=== PATIENT | male | born 1945 | race Caucasian/White ===

== ENCOUNTER → 2020-04-27 09:13 | Outpatient (BNVA) | payer MEDICARE, BC, SELFPAY | PROVIDERS: Family Provider Family Medicine; PCP Family Medicine; Visit Provider Urology | DX: R10.32 Left lower quadrant pain (principal); C67.9 Malignant neoplasm of bladder, unspecified; F17.210 Nicotine dependence, cigarettes, uncomplicated | CPT/HCPCS: 81001 ==

== ENCOUNTER 2020-05-15 07:53 | Outpatient (CLI) | payer MEDICARE, BC, SELFPAY ==
--- NOTE | 2020-05-15 08:30 | IR_ITS ---
WS: [id number] MYELOGRAM LUMBAR SPINE Fluoroscopic guided lumbar myelogram CLINICAL INFORMATION: Low back pain COMPARISON: 019 TECHNIQUE: The procedure, including risks, benefits, and complications, were discussed with the patie nt who agreed to proceed. A timeout was performed to confirm correct patient, procedure, and site. Using sterile technique, the patient was prepped and draped in the usual sterile fashion. After admin istration of local anesthesia using 1% preservative-free lidocaine and using fluoroscopic guidance, a 22-gauge spinal needle was advanced into the subarachnoid space at the L1-L2 level. Subsequently 13 cc of Omnipaque 240 was administered into the thecal sac. The needle was removed and hemostasis was a chieved. Spot fluoroscopic images were obtained. FLUOROSCOPIC TIME: 0.7 minutes. Spot fluoroscopic images demonstrate spinal stimulator. S-shaped lumbar scoliosis. Advanced spondylit ic changes. 5 nonrib-bearing lumbar vertebral bodies. Disc space narrowing worse at L2-L3, L3-L4, L4- L5. Anterior hypertrophic changes. Bony foraminal narrowing L5-S1. Slight retrolisthesis L2 on L3, L3 on L4, and L4 on L5. Aortic calcification. No instability on flexion-extension. High-grade central c anal stenosis L3-L5 with partial contrast block. Please see CT myelogram report for additional detail. IR/[place] [id number] IMPRESSION: 1. Uncomplicated lumbar myelogram. 2. High-grade central canal stenosis L3-L5 with partial contrast block. See CT for further anatomic detail. 3. S-shaped lumbar scoliosis. 4. Spinal stimulator. 5. No instability on flexion-extension.
[2020-05-15] MEDS: iohexol 240 mg/mL 50 mL Btl INTRATHECA (09:27)
--- NOTE | 2020-05-15 11:00 | CT_ITS ---
WS: [id number] CT LUMBAR SPINE TECHNIQUE: Contrast-enhanced CT of the lumbar spine with coronal and sagittal reformatted images. CLINICAL INFORMATION: Low back pain COMPARISON: CT myelogram 8 ,019 DLP: 1988.[address] scans at [facility] use at least one of these dose optimization techniques: automat ed exposure control; mA and/or kV adjustment per patient size (includes targeted exams where dose is matched to clinical indication); or iterative reconstruction. FINDINGS: S-shaped lumbar scoliosis. Multilevel degenerative disc disease. Extensive postoperative changes with right-sided hemilaminectomies L2-L3, L3-4, L4-L5 and L5-S1. Dorsal column stimulator placement. Disc space narrowing worse at L2-L3 L3-L4 L4-L5 and L5-S1. Endplate degenerative changes. Disc space narr owing appears stable since 2019. T12-L1: Right pericentral protrusion. Mild right and no significant left foraminal narrowing. Moderat e facet arthropathy. Spinal canal is patent. L1-L2: Right pericentral protrusion impinges the traversing right L2 nerve root. Mild central canal s tenosis. Mild to moderate right and mild left foraminal narrowing. Moderate facet arthropathy. L2-L3: Prior postoperative changes. Mild circumferential central canal stenosis with disc osteophyte complex. Moderate bilateral bony foraminal narrowing. Moderate facet arthropathy. L3-L4: Disc osteophyte complex with a central disc osteophyte protrusion. Moderate central canal sten osis. Poor opacification of the thecal sac due to stenosis. Moderate right and mild left foraminal na rrowing. Moderate facet arthropathy. L4-L5: Vacuum disc phenomenon with disc osteophyte complex. Mild to moderate central canal stenosis. Moderate right and mild left foraminal narrowing. L5-S1: Disc osteophyte complex with endplate ridging. Moderate central canal stenosis. Impingement on the right S1 nerve root. Moderate bilateral foraminal narrowing right greater than left. Impingement on the exiting right L5 nerve root. Aortic calcification. Shotty retroperitoneal and periaortic lymph nodes. Visualized pelvic bony structures: Normal. Paravertebral soft tissues: Normal. CT/CT lumbar spine w con [id number] IMPRESSION: 1. Overall no significant changes since July 08, 2019. 2. S-shaped lumbar scoliosis with multilevel degenerative disc disease. 3. Multilevel postoperative changes right hemilaminectomy L2-L3, L3-L4, L4-L5 and L5-S1. 4. Redundancy of the cauda equina nerve rootlets at L1-2 and L2-3 due to high- grade partial contrast block at the L3 level. Central disc osteophyte protrusio n L3-4 results in moderate to severe central canal stenosis despite prior jennifer ectomy defects. Impingement on the thecal sac. 5. Moderate central canal stenosis L4-L5 and L5-S1. Impingement traversing rig ht S1 nerve root. 6. Small right pericentral protrusion L1-2 impinges the right L2 nerve root. 7. Multilevel foraminal narrowing described above.
== END 2020-05-15 07:54 | disposition home or self-care (01) ==
LOC: RADWPI 08:00
PROVIDERS: Family Provider Family Medicine; PCP Family Medicine; Visit Provider Licensed Practical Nurse
DX: M41.86 Other forms of scoliosis, lumbar region (principal); M51.36 Other intervertebral disc degeneration, lumbar region; M51.26 Other intervertebral disc displacement, lumbar region; M48.061 Spinal stenosis, lumbar region without neurogenic claudication
CPT/HCPCS: 62304; 72120; 72132; Q9966

== ENCOUNTER → 2020-09-13 15:38 | Outpatient (BNVA) | payer MEDICARE, BC, SELFPAY | PROVIDERS: Family Provider Family Medicine; PCP Family Medicine; Visit Provider Dermatology | DX: D48.9 Neoplasm of uncertain behavior, unspecified (principal) | CPT/HCPCS: 88304 ==

== ENCOUNTER 2021-03-22 12:57 | Outpatient (CLI) | payer MEDICARE, BC, SELFPAY ==
--- NOTE | 2021-03-22 14:36 | N.ONRAD NP_ITS ---
Radiation Oncology Consultation Patient Name: Wilma Dowling Date of : 1945 Date of Service: 03/22/2021 Attending Physician: Humberto Bernardo M.D. Wilma Dowling was seen in consultation this afternoon at the request of Salas Gupta M.D. for consideration of radiotherapy for the management of a recurrent nonmelanoma skin cancer. 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 A two-stage procedure was completed with a final surgical defect measuring 2.5 cm x 1.7 (final defect depth was to the cartilage -the pathology report was requested from the hospital and personally reviewed). He was evaluated approximately 1 month ago at [facility] on account of wound dehiscence and persistent drainage from the right ear. Examination revealed a 1 cm diameter full-thickness skin loss in the ignacia right ear without the presence of abscess or purulent discharge. A biopsy obtained on March 02, 2021 confirmed well differentiated invasive squamous cell carcinoma. He presents for consideration of salvage radiotherapy. Following a discussion concerning Mr. Dowling's disease history (high risk stratification appertaining to location), salvage radiotherapy would be recommended if re-excision is not an option according to the National Comprehensive Cancer Network Guidelines for nonsurgical candidates. I would endorse a 6-1/2 week course of cutaneous radiotherapy to the right ear if surgery is not offered. The patient's medical treatment plan was discussed with Salas Gupta M.D. Signed by: Dr. Humberto Bernardo 03/22/2021 2:34:34 PM
== END 2021-03-22 12:58 | disposition home or self-care (01) ==
LOC: ONCMED 13:06
PROVIDERS: PCP Family Medicine; Visit Provider Radiology Radiation Oncology
DX: C49.0 Malignant neoplasm of connective and soft tissue of head, face and neck (principal); Z79.899 Other long term (current) drug therapy
CPT/HCPCS: 99205

== ENCOUNTER 2021-04-11 13:22 | Outpatient (CLI) | payer MEDICARE, BC, SELFPAY | END 2021-04-11 13:23 | disposition home or self-care (01) | PROVIDERS: PCP Family Medicine; Visit Provider Specialist | DX: C44.222 Squamous cell carcinoma of skin of right ear and external auricular canal (principal) | CPT/HCPCS: 88304; 88331 ==

== ENCOUNTER 2021-06-08 05:50 | Outpatient (RCR) | payer MEDICARE, BC, SELFPAY ==
--- NOTE | 2021-05-29 | CT_ITS ---
Radiation Therapy Planning CT images; total exam DLP: 547.74 mGy-cm MTDD
--- NOTE | 2021-06-04 11:20 | ONCRAD TMN_ITS ---
Radiation Oncology Weekly Treatment Management Patient: Wilma Dowling MR#: [id number] : 1945> Attending Physician: Dr. 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 ID: [id number],Energy: 6X, Dose/Fx (cGy): 200, #Fx: , Dose Correction (cGy): 0, Total Dose (cGy): 400, Start Date: 05/31/2021, Elapsed Days: 4 Reason for visit: The patient is being seen today as part of their regularly scheduled weekly on treatment visits to assess for acute toxicities from radiotherapy. Review of Systems: has long-term back problems which require narcotic pain medication. He is followed by the pain clinic. He is tolerating the treatment position well. I placed the bolus for his initial treatment and the therapists say they are having no difficulty duplicating that. Mr. Dowling's main concern is the area posterior to the antitragus down into the lobule and posterior to that area. There has been some puffiness of this area since he was seen for simulation. He has expressed concern each time I have seen him. There is some tenderness. He is seeing Dr. Toscano after today's treatment for evaluation of that area. Vital Signs: Performed on 06/04/2021 10:44 AM BMI - 30.767 kg/m2 (high), Height - 73.00 in, Weight - 233.2 lbs, Temperature - 97.9 f, Pulse - 68, Respiration - 20, O2 Sat - 97 %, Pain - 5 and BP - 110/ 68 mm(hg). Physical Exam: The ear is stable in appearance. No gross lesions seen. There continues to be mild edema in the area of his concern. He says there is tenderness but he does not withdraw when the area is touched. Between the earlobe and the skin of the postauricular area, there is mild edema. There is slight fluctuance. There is no drainage or warmth or other evidence of infection. Imaging: Radiation therapy imaging related to accurate target localization (i.e. KV, MV and CBCT) was reviewed. Appropriate changes, if any, were made to ensure treatment accuracy. Plan: Continue treatment according to plan. I told the patient that if there is recurrence in the area of concern that it is in the treatment volume and the dose of radiation should be adequate. I told him if there is concern for infection he may be placed on antibiotics. For now we will wait Dr. Toscano to evaluation. Signed by: Dr. Marco Porter 06/04/2021 11:19:11 AM
== END 2021-06-09 23:59 | disposition home or self-care (01) ==
LOC: ONCMED 05:50
PROVIDERS: PCP Family Medicine; Visit Provider Specialist
DX: Z51.0 Encounter for antineoplastic radiation therapy (principal); C44.221 Squamous cell carcinoma of skin of unspecified ear and external auricular canal; Z79.899 Other long term (current) drug therapy
CPT/HCPCS: 77300; 77301; 77334; 77338; 77386

== ENCOUNTER 2021-07-10 05:46 | Outpatient (RCR) | payer MEDICARE, BC, SELFPAY ==
--- NOTE | 2021-06-11 10:53 | ONCRAD TMN_ITS ---
Radiation Oncology Treatment Management Note Patient Name: Wilma Dowling Date of : 1945 Date of Service: 06/11/2021 Attending Physician: Humberto Bernardo M.D. 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 A wide local excision with a free-skin graft was performed on April 11, 2021 by Salas Gupta M.D. The patient has received 12 Gy of a prescribed 54 Eason with an intensity modulated radiotherapy plan utilizing a step and shoot treatment technique. Upon review of systems, he denied any complaints related to radiotherapy. On physical examination, the patient weighed 248 lbs. His temperature was 98.0 ???F with a blood pressure of 119/73 mmHg. His pulse was 66 bpm and the respiratory rate was 18. There was no erythema within the treatment benjamin. Continue post-operative radiotherapy as prescribed. I will prescribe betamethasone valerate 0.15 cream bid for prevention of dermatitis. Signed by: Dr. Humberto Bernardo 06/11/2021 10:51:39 AM
--- NOTE | 2021-06-18 11:06 | ONCRAD TMN_ITS ---
Radiation Oncology Treatment Management Note Patient Name: Wilma Dowling Date of : 1945 Date of Service: 06/18/2021 Attending Physician: Humberto Bernardo M.D. 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 A wide local excision with a free-skin graft was performed on April 11, 2021 by Salas Gupta M.D. The patient has received 22 Gy of a prescribed 66 Eason with an intensity modulated radiotherapy plan utilizing a step and shoot treatment technique. Upon review of systems, he denied any complaints related to radiotherapy. On physical examination, the patient weighed 233 lbs. His temperature was 97.5 ???F with a blood pressure of 105/66 mmHg. His pulse was 64 bpm and the respiratory rate was 20. There was a grade I erythema within the treatment benjamin. Continue post-operative radiotherapy as planned. Signed by: Dr. Humberto Bernardo 06/18/2021 11:04:32 AM
--- NOTE | 2021-06-25 10:26 | ONCRAD TMN_ITS ---
Radiation Oncology Treatment Management Note Patient Name: Wilma Dowling Date of : 1945 Date of Service: 06/25/2021 Attending Physician: Humberto Bernardo M.D. 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 A wide local excision with a free-skin graft was performed on April 11, 2021 by Salas Gupta M.D. The patient has received 32 Gy of a prescribed 66 Eason with an intensity modulated radiotherapy plan utilizing a step and shoot treatment technique. Upon review of systems, he denied any complaints related to radiotherapy. On physical examination, the patient weighed 231 lbs. His temperature was 98.2 ???F with a blood pressure of 122/67 mmHg. His pulse was 75 bpm and the respiratory rate was 20. There was a grade I erythema within the treatment benjamin. Continue post-operative radiotherapy as prescribed. Signed by: Dr. Humberto Bernardo 06/25/2021 10:25:56 AM
--- NOTE | 2021-07-02 10:16 | ONCRAD TMN_ITS ---
Radiation Oncology Treatment Management Note Patient Name: Wilma Dowling Date of : 1945 Date of Service: 07/02/2021 Attending Physician: Humberto Bernardo M.D. 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 A wide local excision with a free-skin graft was performed on April 11, 2021 by Salas Gupta M.D. The patient has received 42 Gy of a prescribed 66 Eason with an intensity modulated radiotherapy plan utilizing a step and shoot treatment technique. Upon review of systems, he denied any complaints related to radiotherapy. On physical examination, the patient weighed 231 lbs. His temperature was 97.7 ???F with a blood pressure of 103/58 mmHg. His pulse was 64 bpm and the respiratory rate was 18. There was a grade I erythema within the treatment benjamin. Continue post-operative radiotherapy as planned. Signed by: Dr. Humberto Bernardo 07/02/2021 10:15:05 AM
--- NOTE | 2021-07-09 10:30 | ONCRAD TMN_ITS ---
Radiation Oncology Weekly Treatment Management Patient: Nitesh Coleman MR#: [id number] : 1945> Attending Physician: Dr. Marco Porter Date of Service: 07/09/2021 Referring Physician(s) : Rajiv Weinberg M.D. 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 ID: [id number], Energy: 6X, Dose/Fx (cGy): 200, #Fx: / 33, Dose Correction (cGy): 0, Total Dose (cGy): 5,200, Start Date: 05/31/2021, Elapsed Days: 39 Reason for visit: The patient is being seen today as part of his regularly scheduled weekly on treatment visits to assess for acute toxicities from radiotherapy. Review of Systems: No new complaints regarding his ear. He applies betamethasone cream twice daily and is happy with the results of that. He has no ear pain or jaw pain. He notices slight skin irritation and discomfort in the postauricular area. Vital Signs: Performed on 07/09/2021 10:05 AM BMI - 29.896 kg/m2 (high), Height - 73.00 in, Weight - 226.6 lbs, Temperature - 97.8 f, Pulse - 60 /min, Respiration - 18 /min, O2 Sat - 97 %, Pain - 8 and BP - 107/ 65 mm(hg). Physical Exam: The right upper mandible and preauricular area are nontender. There is mild erythema of the skin in this area. The ear, ear canal, and postauricular area have a moderate skin reaction with erythema and dry desquamation. He does not have any moist desquamation. No lymphadenopathy palpated. He pointed out a couple of areas, 1 in the right preauricular area and the other just lateral to the right commissure of the oral cavity, that are of concern to him. Neither area appears suspicious for skin cancer. Imaging: Radiation therapy imaging related to accurate target localization (i.e. KV, MV and CBCT) was reviewed. Appropriate changes, if any, were made to ensure treatment accuracy. Plan: Continue treatment as planned. He continues to be very anxious about the results of treatment. I tried to reassure him that we typically have very good results with cancers of this type. Signed by: Dr. Marco Porter 07/09/2021 10:28:44 AM
== END 2021-07-10 23:59 | disposition home or self-care (01) ==
LOC: ONCMED 05:46
PROVIDERS: PCP Family Medicine; Visit Provider Specialist
DX: Z51.0 Encounter for antineoplastic radiation therapy (principal); C44.221 Squamous cell carcinoma of skin of unspecified ear and external auricular canal; Z79.899 Other long term (current) drug therapy
CPT/HCPCS: 77336; 77386

== ENCOUNTER 2021-07-20 05:54 | Outpatient (RCR) | payer MEDICARE, BC, SELFPAY ==
--- NOTE | 2021-07-17 10:41 | ONCRAD TMN_ITS ---
Radiation Oncology Treatment Management Note Patient Name: Wilma Dowling Date of : 1945 Date of Service: 07/17/2021 Attending Physician: Humberto Bernardo M.D. 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 A wide local excision with a free-skin graft was performed on April 11, 2021 by Salas Gupta M.D. The patient has received 60 Gy of a prescribed 66 Eason with an intensity modulated radiotherapy plan utilizing a step and shoot treatment technique. Upon review of systems, he denied any complaints related to radiotherapy. On physical examination, the patient weighed 227 lbs. His temperature was 97.8 ???F with a blood pressure of 98/58 mmHg. His pulse was 74 bpm and the respiratory rate was 20. There was a grade I erythema within the treatment benjamin. Continue post-operative radiotherapy as prescribed. Signed by: Dr. Humberto Bernardo 07/17/2021 10:41:25 AM
--- NOTE | 2021-07-20 10:02 | N.ONRD TS_ITS ---
Radiation OncologyTreatment Summary Patient Name: Wilma Dowling Date of : 1945 Date of Service: 07/20/2021 Attending Physician: Humberto Bernardo M.D. 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 A wide local excision with a free-skin graft was performed on April 11, 2021 by Salas Gupta M.D. Head and neck radiation therapy was delivered between the dates of May 31, 2021 through July 20, 2021. A prescribed dose of 66 Gy was delivered in 33 fractions encompassing 51 elapsed days. The postoperative bed was treated utilizing an intensity modulated radiotherapy plan with a step and shoot treatment technique. The plan required six gantry angles (200???, 220???, 240???, 280???, 300???, and 330???) replicating a partial arc. The collimator rotation was 0???. The field sizes spanned between 7.1 cm x 9.1 cm to 10.8 cm x 9.1 cm. The SSDs measured a minimum of 96.9 cm to a maximum of 99.8 cm. The ports delivered 214 MU, 182 MU, 176 MU, 263 MU, 293 MU, and 455 MU corresponding to the gantry angles described. Low energy photons were prescribed. All treatments were performed with the SmartPill linear accelerator and an isocentric technique. The dose was calculated by Anisotropic Analytic Algorithm with the plan normalized to deliver 100% of the prescription dose to 95% of the planning target volume. The plan was designed and approved by the [facility] physician. Signed by: Dr. Humberto Bernardo 07/20/2021 10:00:45 AM
== END 2021-08-09 23:59 | disposition home or self-care (01) ==
LOC: ONCMED 05:54
PROVIDERS: PCP Family Medicine; Visit Provider Radiology Radiation Oncology
DX: Z51.0 Encounter for antineoplastic radiation therapy (principal); C44.221 Squamous cell carcinoma of skin of unspecified ear and external auricular canal; Z79.899 Other long term (current) drug therapy
CPT/HCPCS: 77014; 77336; 77386; 77387

== ENCOUNTER → 2022-01-22 15:17 | Outpatient (BNVA) | payer MEDICARE, BC, SELFPAY | PROVIDERS: PCP Family Medicine; Referring Provider Anesthesiology Pain Medicine; Visit Provider Orthopaedic Surgery | DX: M48.062 Spinal stenosis, lumbar region with neurogenic claudication (principal) | CPT/HCPCS: 72110 ==

== ENCOUNTER 2022-02-28 09:18 | Outpatient (CLI) | payer MEDICARE, BC, SELFPAY ==
--- NOTE | 2022-02-28 11:01 | FL_ITS ---
WS: [id number] Limited lumbar spine. Patient presents for lumbar myelogram. This was an unsuccessful attempt at performing a myelogram. Mumtaz liban was unable to remain prone for this examination due to extreme pain. There is also extensive os teophyte disease with fusion throughout the lumbar spine therefore doubtful this would have been succ essful if the patient was able to remain still in a prone position.
== END 2022-02-28 09:19 | disposition home or self-care (01) ==
LOC: RAD 09:21
PROVIDERS: PCP Family Medicine; Visit Provider Orthopaedic Surgery
DX: M48.062 Spinal stenosis, lumbar region with neurogenic claudication (principal); Z53.09 Procedure and treatment not carried out because of other contraindication
CPT/HCPCS: 76000

== ENCOUNTER → 2022-09-26 14:28 | Outpatient (BNVA) | payer MEDICARE, BC, SELFPAY | PROVIDERS: PCP Family Medicine; Referring Provider Family Medicine; Visit Provider Orthopaedic Surgery | DX: M48.062 Spinal stenosis, lumbar region with neurogenic claudication (principal); M47.816 Spondylosis without myelopathy or radiculopathy, lumbar region; G95.89 Other specified diseases of spinal cord; M12.9 Arthropathy, unspecified; M51.36 Other intervertebral disc degeneration, lumbar region; M51.37 Other intervertebral disc degeneration, lumbosacral region | CPT/HCPCS: 72110; 99214 ==

== ENCOUNTER 2022-11-13 18:49 | Inpatient (IN) | payer MEDICARE, BC, SELFPAY ==
[2022-11-05 10:37] VITALS: BMI 29.0
--- NOTE | 2022-11-05 11:15 | ANES.PREANE2 ---
Pre-Anesthetic Assessment Height/Weight: Height 1.85 m Weight 99.79 kg Operation Date: 11/13/22 07:00 Proposed Procedures p Spinal Fusion 38571/[id number]/79002/67343/96028/[id number]/M48.062(Not Applicable) - Bishop Hernández DO s Lumbar Spine Decompression(Not Applicable) - Bishop Hernández DO Familial anesthetic complications: None Social Tobacco and No alcohol Exam alert, oriented x 3, clear to auscultation bilaterally and regular rate & rhythm Airway Mallampati: Class III Dentition: false Pulmonary None reported CV/HEM Atrial Fibrillation and Hypertension None reported Hepatic None reported GI None reported Metabolic Diabetes Mellitus and Hyperlipidemia Anesthetic Plan ASA status: 3 Anesthesia: General Risk of > 500 ml blood loss (7ml/kg in children): No Medications/Allergies Home Medications Medication Instructions Recorded Confirmed Last Taken Type allopurinol 100 mg tablet 100 mg PO BID 03/24/20 11/05/22 Unknown History diltiazem HCl 240 mg capsule,24 240 mg PO DAILY 03/24/20 11/05/22 Unknown History hr,extended release furosemide 20 mg tablet 20 mg PO DAILY 03/24/20 11/05/22 Unknown History gabapentin 600 mg tablet 600 mg PO TID 03/24/20 11/05/22 Unknown History glimepiride 1 mg tablet 1 mg PO DAILY 03/24/20 11/05/22 Unknown History hydrocodone 10 mg-acetaminophen 1 tab PO Q6H PRN Pain 03/24/20 11/05/22 Unknown History 325 mg tablet ([place]) metformin 1,000 mg tablet 1,000 mg PO BID 03/24/20 11/05/22 Unknown History pravastatin 40 mg tablet 40 mg PO DAILY 03/24/20 11/05/22 Unknown History propafenone 150 mg tablet 150 mg PO TID 03/24/20 11/05/22 Unknown History warfarin 4 mg tablet 4 mg PO DIRECTED 03/24/20 11/05/22 Unknown History AREDS 2 01/22/22 09/26/22 Unknown History tamsulosin 0.4 mg capsule See Rx Instructions .Route 02/28/22 11/05/22 Unknown Rx .COMPLEX #180 caps AFO Brace #1 ea 09/26/22 09/26/22 Unknown Rx Diabetic Shoes (3 insoles) #1 ea 09/26/22 09/26/22 Unknown Rx Walker #1 ea 09/26/22 09/26/22 Unknown Rx Intraoperative neuromonitoring #1 ea 10/30/22 Unknown Rx pregabalin 50 mg capsule 50 mg PO DAILY 11/05/22 11/05/22 Unknown History warfarin 3 mg tablet 3 mg PO DIRECTED 11/05/22 11/05/22 Unknown History Allergies Allergy/AdvReac Type Severity Reaction Status Date / Time gabapentin Allergy passes out Verified 11/05/22 10:25 lisinopril Allergy UNKNOWN Verified 11/05/22 10:25 rosuvastatin [From Crestor] Allergy swelling Verified 11/05/22 10:25 [facility] Anesthesia Medical History Arthritis Bladder cancer Diabetes mellitus Gout History of nonmelanoma skin cancer Hypercholesterolemia Hypertension Idiopathic scoliosis of lumbar region Lumbar stenosis with neurogenic claudication Postlaminectomy syndrome, not elsewhere classified Surgical History History of ankle surgery (~1979) both History of back surgery (~1990) 09/07/2015 Dr. Amy Carroll. Thoracic laminectomy, placement of epidural electrode array, placement of a subcutaneous programmable pulse generator. 03/04/2013 Dr. Amy Carroll. Right L1-L2, L2-L3, L3-L4, L4-L5 and L5-S1 laminotomies, with foraminotomies and limited medial facetectomies. History of bunionectomy (~1997) History of cataract extraction History of knee replacement, total (~1997) Right History of lumbar surgery (~03/2013) History of rotator cuff surgery (~09/2014) Family History Father , at age 40 Boat accident with submersion Mother , at age 72 Diabetes Other No pertinent family history Social History Smoking and tobacco status: current every day smoker Alcohol intake: never Household members: none Marital status: Current occupational status: disabled History of recent travel: No Data Anesthesia Cardiac Studies: No Data to Display
[2022-11-13] VITALS (18 sets, daily range): BP systolic 83–134; BP diastolic 58–79; PULSE 56–89; RESP 12–18; TEMP 36.2–36.6; O2SAT 91–100
[2022-11-13 11:11] LABS: Glucose Point of Care 134 mg/dL (70-110)
--- NOTE | 2022-11-13 12:27 | PM.HP ---
Providers/Chief Complaint Primary Care Provider: Hieu Rob Chief Complaint: [id number] History of Present Illness Wilma Dowlign is a 77 year old male low back pain. He states he has had back pain for years. He reports low back pain, radiating into his BLE. He explains he has numbness, tingling and weakness in his legs. He states his left side is worse. Patient states he is experiencing right foot drop. He states he had a neuro stimulator placed 3-4 years ago, by Dr. Barr. He explains the stimulator isn't working. He states he had a previous lumbar surgery by Dr. Smiley years ago. Patient has a recent CT scan from 09/06, ordered by his pcp, and is here today to go over results. Review of Systems General: Reports: 10 or more systems reviewed and unremarkable except in HPI and below Const: Denies: fever(s), chills or body aches Card: Denies: chest pain or orthopnea Resp: Denies: dyspnea, productive cough or wheezing GI: Denies: abdominal pain, nausea or vomiting Musc: Reports: back pain and extremity pain Skin/Breast: Denies: changes in skin color or dry skin Neuro: Reports: numbness in extremities and weakness in extremities Psych: Denies: anxiety Meng/Lymph: Denies: easy bruising or easy bleeding Medications/Allergies Home Medications Medication Instructions Recorded Confirmed Last Taken Type allopurinol 100 mg tablet 100 mg PO BID 03/24/20 11/13/22 11/13/22 History diltiazem HCl 240 mg capsule,24 240 mg PO DAILY 03/24/20 11/13/22 11/13/22 History hr,extended release furosemide 20 mg tablet 20 mg PO DAILY 03/24/20 11/13/22 11/13/22 History gabapentin 600 mg tablet 600 mg PO TID 03/24/20 11/05/22 Unknown History glimepiride 1 mg tablet 1 mg PO DAILY 03/24/20 11/13/22 11/13/22 History hydrocodone 10 mg-acetaminophen 1 tab PO Q6H PRN Pain 03/24/20 11/13/22 11/13/22 History 325 mg tablet ([place]) metformin 1,000 mg tablet 1,000 mg PO BID 03/24/20 11/13/22 11/12/22 History pravastatin 40 mg tablet 40 mg PO DAILY 03/24/20 11/13/22 11/13/22 History propafenone 150 mg tablet 150 mg PO TID 03/24/20 11/13/22 11/13/22 History warfarin 4 mg tablet 4 mg PO DIRECTED 03/24/20 11/05/22 Unknown History AREDS 2 01/22/22 09/26/22 Unknown History tamsulosin 0.4 mg capsule See Rx Instructions .Route 02/28/22 11/13/22 11/13/22 Rx .COMPLEX #180 caps AFO Brace #1 ea 09/26/22 09/26/22 Unknown Rx Diabetic Shoes (3 insoles) #1 ea 09/26/22 09/26/22 Unknown Rx Walker #1 ea 09/26/22 09/26/22 Unknown Rx Intraoperative neuromonitoring #1 ea 10/30/22 Unknown Rx pregabalin 50 mg capsule 50 mg PO DAILY 11/05/22 11/13/22 11/13/22 History warfarin 3 mg tablet 3 mg PO DIRECTED 11/05/22 11/13/22 11/08/22 History Allergies Allergy/AdvReac Type Severity Reaction Status Date / Time gabapentin Allergy passes out Verified 11/05/22 10:25 lisinopril Allergy UNKNOWN Verified 11/05/22 10:25 rosuvastatin [From Crestor] Allergy swelling Verified 11/05/22 10:25 PFSH Acute PFSH: Medical History Arthritis Bladder cancer Diabetes mellitus Gout History of nonmelanoma skin cancer Hypercholesterolemia Hypertension Idiopathic scoliosis of lumbar region Lumbar stenosis with neurogenic claudication Postlaminectomy syndrome, not elsewhere classified Surgical History History of ankle surgery (~1979) both History of back surgery (~1990) 09/07/2015 Dr. Amy Carroll. Thoracic laminectomy, placement of epidural electrode array, placement of a subcutaneous programmable pulse generator. 03/04/2013 Dr. Amy Carroll. Right L1-L2, L2-L3, L3-L4, L4-L5 and L5-S1 laminotomies, with foraminotomies and limited medial facetectomies. History of bunionectomy (~1997) History of cataract extraction History of knee replacement, total (~1997) Right History of lumbar surgery (~03/2013) History of rotator cuff surgery (~09/2014) Family History Father , at age 40 Boat accident with submersion Mother , at age 72 Diabetes Other No pertinent family history Social History Smoking and tobacco status: current every day smoker Alcohol intake: never Household members: none Marital status: Current occupational status: disabled History of recent travel: No Vitals/I&O/Wt Last Vital Signs Temp 97.8 F 11/13/22 10:27 Pulse 56 L 11/13/22 10:27 Resp 18 11/13/22 10:27 BP 114/64 11/13/22 10:27 Pulse Ox 95 11/13/22 10:27 O2 Del Method 11/13/22 10:30 Physical Exam Narrative: CONSTITUTIONAL: The patient is a normal appearing [] in no apparent distress. GENERAL: Patient in no acute distress. CARDIAC: Regular rate and rhythm. CHEST: Normal inspiratory effort, normal respiratory rate. ABDOMEN: Soft and nontender. SKIN: Clear, warm and intact. NEURO?PSYCH: The patient is alert and oriented to person, place and time. Sensorv /SILT Motor StrengthShoulder abduction C5 5/5Wrist extension C6 5/5Elbow extension C7 5/5Hand Income Auditor C8 5/5Finger abduction T15/5 Radial/ Ulnar/ Median n intact LowerSensory (SILT)Motor StrengthHin flexion L2/3Ant/inner thigh 5/5Hip adduction L2/3 5/5Knee extension L4 Lat thigh, 5/5Toe dorsiflexion L5 5/5Ankle dorsiflexion L5/ [id number] flexion S1 5/5 DTRBleeps 2+Triceps 2+Brachioradialis 2+Patellar 2+Achilles 2+ MUSCULOSKELETAL: [] UPPEREXTREMITIES: The patient had full active ROM in fingers, wrist, elbow, and shoulder. The patient demonstrated ability to fully flex/extend/abduct/adduct fingers, make ok sign, cross 2nd/3rd digits, extend 1st digit fully.. Radial pulse 2+, CR<2 seconds. LOWER EXTREMITIES: Pt has full, active ROM of toes, ankle, knee, and hip. Dorsalis pedis/posterior tibialis pulses 2+, CR<2 seconds. SPINE: Skin warm, dry, intact. A&P Assessment and plan (1) Lumbar stenosis with neurogenic claudication: [id number] fusion and decompression; removal of stimulator (2) History of back surgery: Attestations Medical Necessity Statement*: failed conservative therapy Coding Level of Care Code Acute Interline Clerk for [facility] Fwd Diagnoses Lumbar stenosis with neurogenic claudication M48.062 History of back surgery Z98.890
[2022-11-13] MEDS: ceFAZolin 2,000 MG in sodium chloride 0.9% (plus) 50 ML 100 MG IV ×2 (13:00→21:31)
[2022-11-13] MEDS: tranexamic acid 1,000 mg/10mL SDV 1000 MG IV (13:25)
[2022-11-13] MEDS: vancomycin 1,000 MG SDV 1000 MG XX (14:06)
[2022-11-13] MEDS: heparin, porcine 1,000 unit/mL INJ 10 mL 10000 UNIT IRRIGATION (14:06)
--- NOTE | 2022-11-13 17:27 | XR_ITS ---
WS: [id number] Lumbar spine, C-arm fluoroscopy, 11/13/2022 Clinical Data: OR PICS Comparison: None. Findings: Dr. Hernández performed an extensive posterior thoracolumbar sacral fusion with bilateral pedicle screws and connecting rods. XR/XR lumbar spine 1V [id number] Impression: Posterior thoracolumbar sacral fusion.
--- NOTE | 2022-11-13 17:58 | P.OP_ITS ---
Operative Report Date of procedure: November 13, 2022 Pre-op diagnosis: Preop Diagnosis Lumbar stenosis with neurogenic claudication, idiopathic scoliosis Post-op diagnosis: same Procedure done: 1. T10 to Pelvis posterior fusion 2. T10 to S1 posterior Instrumentation 3. Lumbopelvic fixation 4. L4/5 revision laminectomy with partial facetectomies 5. L5/S1 laminectomy with complete facetectomies 6. Use of computer navigation/ stereotactic for spine 7. Bone marrow aspirate from right iliac crest 8. Use of autograft from same incision 9. Use of allograft 10. Removal of neurostimulator 11. Removal of battery for neurostimulator Surgeon: Bishop Hernández Residential Sales Associate: Ham Wilkerson Residential Sales Associate: The surgical attendant, Ham Wilkerson, PAC was needed for his expertise under the microscope. He was important and necessary throughout the procedure to complete in a safe and timely manner. He assisted with patient positioning prepping and draping tissue retraction suctioning of the operative field protection of the dural sac and tissue closure Estimated blood loss (mL): 650 Procedure: 1. T10 to Pelvis posterior fusion 2. T10 to S1 posterior Instrumentation 3. Lumbopelvic fixation 4. L4/5 revision laminectomy with partial facetectomies 5. L5/S1 revision laminectomy with complete facetectomies 6. Use of computer navigation/ stereotactic for spine 7. Bone marrow aspirate from right iliac crest 8. Use of autograft from same incision 9. Use of allograft 10. Removal of neurostimulator 11. Removal of battery for neurostimulator Patient was brought to the operative suite. Patient was then placed under anesthesia. Patient had neuro monitoring connected. Patient was then placed in the prone position on the operating room table. All areas impingement were well-padded. Patient was then prepped and draped in the normal sterile fashion. Attention was first brought to removing the battery for the neurostimulator. Skin incision was made over the left flank where the incision was made previously. Battery was identified removed and wires were cut. Next attention was brought to where the neurostimulator was placed. Skin incision was made at the T9-10-11 area where previous incision was made. The thoracolumbar fascia was identified. Prior to going the thoracolumbar fascia the wires from the battery were identified leading down into the epidural space. The wires were traced down. Subperiosteal dissection was made out from the transverse processes of T10 and then T11. Curved curettes were used to dissect out through the scar tissue of the wires tracing down. And curved curettes and Kerrison rongeurs were used. Further laminectomy was made in order to facilitate finding the normal tissue in order to get the curved curettes underneath. Once all of the scar tissue was removed the neurostimulator was then slowly backed out once was backed out the wires were cut. And the stimulator was taken out. Wires were then pulled through and removed. Next attention was brought to dissecting down from T10 down to S1. Again skin incision made using patient's previous skin incisions. The thoracolumbar fascia was identified. The thoracolumbar fascia was then The spinous processes and the subperiosteal dissection was made out to the sacral ala of S1. And then the transverse processes of L5-T10. This was done bilaterally. Once dissection was complete attention was then made to getting the bone marrow aspirate from the right iliac crest. Bone marrow aspirate was taken from the right iliac crest using the region of cell system. The bone marrow aspirate was inserted then aspirated. And then a blunt was placed inside and it was pushed in further and iliac crest and then backed out in 1 mm increments until he had 20 cc of bone marrow aspirate. Next attention was brought to placing the fiducial for the computer navigation for the spine. 2 pins were placed in the right iliac crest. These pins were then later removed at the end of the case. The fiducial was attached to these 2 pins. The C-arm was then brought in and spun around the patient. The case did require that we had to do 2 splints. When the second screw was done I used a spinous process clamp. The screws that were placed using the iliac crest clamp were from L3 to the pelvis. In the screws for the spinous process clamp were from T10-L2. Next attention was brought to placing the pedicle screws. The screws were placed using a technique of drilling with a high-speed bur then using the gearshift probe linked to the computer navigation was passed down the pedicles. Then the ball probe was then passed down the pedicles to ensure that there were no breaches. Then the screw was placed using the computer navigated guide and screws were placed at S1 bilaterally, L5 bilaterally, L4 bilaterally, L3 bilaterally, L2 bilaterally, L1 bilaterally, T12 bilaterally, T11 bilaterally, and T10 bilaterally. Patient is brought to placing the iliac screws. This was done using the sacral ala iliac technique. The screws were placed bilaterally using the gearshift probe that is linked to the computer navigation this past through the sacrum across the ala across the SI joint and into the iliac crest. Next the ball probe was used to palpate there were no breaches. Then the tap that was linked to computer navigation was used and then 100 mm screws were placed Iliac crest. Next attention was brought to the laminectomy of L5-S1 level. There is severe scar tissue the edge of scar tissue was identified. And a high-speed bur was used to take down part of the lamina. To the point where the S1 nerveS1 foramen around the S1 pedicle. A complete facetectomy was done using the sono PET as well as the high-speed bur curved curettes and Kerrisons. This process was done bilaterally. The S1 nerve was palpated with a [place] around the S1 pedicle felt to be completely free bilaterally and the L5 nerve was felt to be completely free bilaterally out the L4-5 foramen after the facets were completely removed. Extension was brought to doing the L4-5 laminectomy. This was done using a high-speed bur tracing up the L5 nerve and to the lamina. Laminectomy again was done with a high-speed bur curved curettes and Kerrison rongeurs. Partial facetectomy was done at this level. This was done bilaterally. The L5 nerve was traced along the pathway around the L5 pedicle and out the foramen. Next attention was brought to placing rods. Rods were placed from T10 down to the iliac crest. Completing the lumbopelvic fixation. The rods were placed bilaterally. Caps were placed and torqued into position. Next attention was brought to decorticating the bone of the lamina from T10 down to L3. This was done bilaterally and then the transverse processes of L1 down to the sacral ala. Autograft and allograft ostial amp were placed in these gutters. This was done in order to facilitate fusion from T10 to the pelvis. Prior to this wounds were irrigated. And deep drain was placed. Vancomycin powder was placed. And wound was closed in a layered fashion using 0 Vicryl 2-0 Vicryl and Monocryl suture. The location of the battery site was closed as well with 0 Vicryl 2-0 Vicryl and Monocryl suture. Sterile dressings were applied patient was transferred to the PACU in stable condition.
[2022-11-13] MEDS: ketorolac 30 mg/mL INJ IVP (18:52)
[2022-11-13] MEDS: lactated ringers 1,000 ML 90 ML IV (18:54)
--- NOTE | 2022-11-13 19:39 | PC.NURSE ---
Addendum entered by Jemal Gonzalez RN 11/13/22 19:40: REcived patient form OR staff at 192. HR: 77 afib, BP: 83/58, Spo2: 93% on 10L oxymask. Temp: 97.2. Patient is occasionally moaning in pain and flailing arms. OR staff and ICU nursing staff log rolled patient for assessment of surgical site. Dressing is clean, intact, no signs of bleeding or drainage. Original Note: REcived patient form OR staff at 192. HR: 77 afib, BP: 83/58, Spo2: 93% on 10L oxymask. Temp: 97.2. Patient is occasionally moaning in pain and flailing arms.
--- NOTE | 2022-11-13 19:41 | PC.NURSE ---
Patient has been in ICU for about 40 minutes, shift change occured. At time of shift change,patient's mental status is still altered, but improved. He is aware he is in the hospital and occasionally expressing needs such as needing to urinate or pain, but he is still lethargic.
[2022-11-13] MEDS: docusate sodium 100 mg Capsule PO (19:57)
[2022-11-13] MEDS: tamsulosin 0.4 mg Capsule 1 MG PO (19:57)
[2022-11-13] MEDS: allopurinol 100 mg Tablet PO (19:58)
[2022-11-13] MEDS: oxyCODONE 10 mg ER (12 HR) Tablet PO (19:58)
[2022-11-13 20:23] LABS: Glucose Point of Care 144 mg/dL (70-110)
[2022-11-13 20:32] LABS: Basophils % 0.3 %; Eosinophils % 0.1 %; Hematocrit 36.8 % (42.0-52.0); Hemoglobin 12.3 g/dL (11.7-16.6); Lymphocytes # 0.8 10^3/uL (0.8-4.8); Lymphocytes % 6.7 %; Mean Corpuscular HGB Conc 33.4 g/dL (30.0-36.0); Mean Corpuscular Hemoglobin 34.6 pg (28.0-34.0); Mean Corpuscular Volume 103.7 fl (80-94); Monocytes # 0.7 10^3/uL (0.2-0.9); Monocytes % 5.9 %; Neutrophils # 10.68 10^3/uL (1.8-7.7); Neutrophils % 86.4 %; Nucleated Red Blood Cells % 0 %; Platelet Count 218 10^3/cmm (130-400); Red Blood Count 3.55 10^6/uL (4.1-5.3); Red Cell Distribution Width 14.8 % (12.1-15.1); White Blood Count 12.4 10^3/uL (4.0-10.0)
[2022-11-13 20:49] LABS: Alanine Aminotransferase 20 U/L (0-41); Albumin Level 3.6 g/dL (3.5-5.2); Alkaline Phosphatase 82 U/L (40-130); Anion Gap 16.3 (5-19); Aspartate Amino Transferase 25 U/L (0-40); Blood Urea Nitrogen 19 mg/dL (8-23); Calcium 8.1 mg/dL (8.5-10.5); Carbon Dioxide 20 mmol/L (22-29); Chloride 109 mmol/L (98-107); Creatinine Clr Calc Pharmacy 97.6178; Globulin 2.5 g/dL (1.3-4.6); Glucose 133 mg/dL (65-115); Osmolality Calculated 296 mOsm/kg (285-295); Potassium 4.3 mmol/L (3.5-5.1); Sodium 141 mmol/L (136-145); Total Bilirubin 0.2 mg/dL (0.15-1.2); Total Protein 6.1 g/dL (6.6-8.7)
--- NOTE | 2022-11-13 21:18 | XRR_ITS ---
PROCEDURE INFORMATION: Exam: XR Chest Exam date and time: 11/13/2022 9:25 PM Age: 77 years old Clinical indication: Shortness of breath TECHNIQUE: Imaging protocol: Radiologic exam of the chest. Views: 1 view. COMPARISON: CR XR chest 2V* [id number] 06/16/2018 12:59 PM FINDINGS: Lungs: Patchy bilateral mid to lower lung field atelectasis versus infiltrate. Pleural spaces: Unremarkable. No pleural effusion. No pneumothorax. Heart/Mediastinum: Unremarkable. No cardiomegaly. Bones/joints: Unremarkable. XR/XR chest 1V portable [id number] IMPRESSION: Patchy bilateral mid to lower lung field atelectasis versus infiltrate.
--- NOTE | 2022-11-13 21:20 | P.CONIM_ITS ---
Providers/Reason For Consult Consulting Physician/Specialty*: Cesia Blas MD/Internal Medicine Reason for Consult*: Medical Management Attending Physician: Bishop Hernández DO Primary Care Provider: Hieu Rob History of Present Illness History of Present Illness Wilma Dowling is a 77 year old male past medical history of diabetes mellitus, gout, hypercholesterolemia, hypertension, lumbar stenosis, bladder cancer presented to the hospital today for an elective procedure of T10 to pelvis posterior fusion, L4-S1 revision laminectomy. Hospitalist was consulted for medical management. Patient seen in room ICU 9 laying in bed appearing comfortable at this time. He is requesting to eat sherbet. He states he just finished eating ice cream. Denies any active shortness of breath. Denies being a smoker. States he does not wear oxygen at home. States his blood sugar is well controlled Respiratory to his knowledge. Patient is on glimepiride at home. At this time denies chest pain, shortness of breath, abdominal pain. He also states he had a right foot drop and numbness tingling down his right leg prior to surgery which has resolved and he feels better. He states he cannot really find a comfortable position but he understands he had surgery today. Estimated blood loss [address] had about 200 cc output which is bloody. Medications/Allergies Home Medications Medication Instructions Recorded Confirmed Last Taken Type allopurinol 100 mg tablet 100 mg PO BID 03/24/20 11/13/22 11/13/22 History diltiazem HCl 240 mg capsule,24 240 mg PO DAILY 03/24/20 11/13/22 11/13/22 H istory hr,extended release furosemide 20 mg tablet 20 mg PO DAILY 03/24/20 11/13/22 11/13/22 History gabapentin 600 mg tablet 600 mg PO TID 03/24/20 11/05/22 Unknown History glimepiride 1 mg tablet 1 mg PO DAILY 03/24/20 11/13/22 11/13/22 History hydrocodone 10 mg-acetaminophen 1 tab PO Q6H PRN Pain 03/24/20 11/13/22 11/13/22 History 325 mg tablet ([place]) metformin 1,000 mg tablet 1,000 mg PO BID 03/24/20 11/13/22 11/12/22 History pravastatin 40 mg tablet 40 mg PO DAILY 03/24/20 11/13/22 11/13/22 History propafenone 150 mg tablet 150 mg PO TID 03/24/20 11/13/22 11/13/22 History warfarin 4 mg tablet 4 mg PO DIRECTED 03/24/20 11/05/22 Unknown History AREDS 2 01/22/22 09/26/22 Unknown History tamsulosin 0.4 mg capsule See Rx Instructions .Route 02/28/22 11/13/22 11/13/22 Rx .COMPLEX #180 caps AFO Brace #1 ea 09/26/22 09/26/22 Unknown Rx Diabetic Shoes (3 insoles) #1 ea 09/26/22 09/26/22 Unknown Rx Walker #1 ea 09/26/22 09/26/22 Unknown Rx Intraoperative neuromonitoring #1 ea 10/30/22 Unknown Rx pregabalin 50 mg capsule 50 mg PO DAILY 11/05/22 11/13/22 11/13/22 History warfarin 3 mg tablet 3 mg PO DIRECTED 11/05/22 11/13/22 11/08/22 History Allergies Allergy/AdvReac Type Severity Reaction Status Date / Time gabapentin Allergy passes out Verified 11/05/22 10:25 lisinopril Allergy UNKNOWN Verified 11/05/22 10:25 rosuvastatin [From Crestor] Allergy swelling Verified 11/05/22 10:25 Current Medications Generic Name Dose Route Start Last Admin Trade Name Freq PRN Reason Stop Dose Admin Allopurinol 100 mg 11/13/22 20:00 11/13/22 19:58 Allopurinol 100 Mg Tablet PO 100 mg BID ANTWAN Administration Docusate Sodium 100 mg 11/13/22 20:00 11/13/22 19:57 Docusate Sodium 100 Mg Capsule PO 100 mg BID ANTWAN Administration Lactated Ringer's 1,000 mls @ 90 mls/hr 11/13/22 17:45 11/13/22 18:54 Lactated Ringers IV 90 mls/hr .[id number] ANTWAN Administration Ketorolac Tromethamine 30 mg 11/13/22 17:38 11/13/22 18:52 Ketorolac 30 Mg/Ml Inj IVP 30 mg Q6H PRN Administration BREAKTHROUGH PAIN Oxycodone HCl 10 mg 11/13/22 20:00 11/13/22 19:58 Oxycodone 10 Mg Er (12 Hr) Tablet PO 10 mg BID ANTWAN Administration Tamsulosin HCl 1 mg 11/13/22 20:00 11/13/22 19:57 Tamsulosin 0.4 Mg Capsule PO 1 mg BID ANTWAN Administration PFSH Acute PFSH: Medical History (Updated 11/13/22 @ 23:08 by Cesia Blas MD) Arthritis Bladder cancer Diabetes mellitus Gout History of nonmelanoma skin cancer Hypercholesterolemia Hypertension Idiopathic scoliosis of lumbar region Lumbar stenosis with neurogenic claudication Postlaminectomy syndrome, not elsewhere classified Surgical History History of ankle surgery (~1979) both History of back surgery (~1990) 09/07/2015 Dr. Amy Carroll. Thoracic laminectomy, placement of epidural electrode array, placement of a subcutaneous programmable pulse generator. 03/04/2013 Dr. Amy Carroll. Right L1-L2, L2-L3, L3-L4, L4-L5 and L5-S1 laminotomies, with foraminotomies and limited medial facetectomies. History of bunionectomy (~1997) History of cataract extraction History of knee replacement, total (~1997) Right History of lumbar surgery (~03/2013) History of rotator cuff surgery (~09/2014) Family History Father , at age 40 Boat accident with submersion Mother , at age 72 Diabetes Other No pertinent family history Social History Smoking and tobacco status: current every day smoker Alcohol intake: never Household members: none Marital status: Current occupational status: disabled History of recent travel: No Vitals/I&O/Wt Last Vital Signs Temp 97.5 F L 11/13/22 20:00 Pulse 60 11/13/22 21:00 Resp 12 11/13/22 21:00 BP 129/68 11/13/22 21:00 Pulse Ox 99 11/13/22 21:00 O2 Del Method 11/13/22 20:00 O2 Flow Rate 5 11/13/22 20:00 11/13/22 11/13/22 11/13/22 06:59 14:59 22:59 Intake Total 50 / 50 Balance 50 / 50 Physical Exam Narrative: General: Alert oriented x3, patient seen laying in bed with 3 L na fay cannula. HEENT: Normocephalic, atraumatic, EOMI, breathing completely. Cardio: Regular rate rhythm, normal S1-S2, Respiratory: Clear to auscultation bilaterally with absent breath sounds at bases. He is unable to take very deep breaths due to positioning. GI: Abdomen soft, nontender, nondistended, bowel sounds +, has back binder in place. Back drain in place draining bloody material, Behavior: Appropriate and cooperative Extremities: 1+ bilateral lower extremity edema, nonpitting, able to move both lower extremities. Unable to fully plantarflex right foot. Urinary Catheter Management: Kay: Cath Placed During This Visit: yes Reason for Continuing Indwelling Catheter: Accurate Measurement of Urinary Output in Critically Ill Patients Urinary Catheter Date of Insertion: 11/13/22 Urinary Catheter Time of Insertion: 13:17 Data 11/13/22 20:07 11/13/22 20:07 A&P Assessment and plan (1) Bladder cancer: (2) Lumbar stenosis with neurogenic claudication: (3) Hypertension: (4) Gout: Plan #Postop day 0 #L4-S1 revision laminectomy, T10 to pelvis posterior fusion #Diabetes mellitus #Peripheral neuropathy #Hypertension #History of atrial fibrillation #Chronic anticoagulation use #History of gout ? Hold metformin, glimepiride ? Insulin sliding scale low-dose intensity. Goal blood sugar 1 40-1 80 during hospital stay ? Continue propafenone, diltiazem 240 daily, recurrent 100 twice daily ? Continue gabapentin 600 3 times daily ? Continue tamsulosin ? Continue to hold warfarin. Restart as per surgical team ? Continue patient's home dose Lasix 20 daily ? Chest x-ray reviewed infiltrate versus atelectasis present at bases. Incentive spirometer ordered. Patient denies any cough. Watch for fever. ? Patient on cefazolin as per surgical team. ? Wean off oxygen as able. I do expect his oxygen requirement to go down with eventual mobilization, incentive spirometry. -Estimated blood loss 600 cc, wound drain draining 200 cc blood. CBC repeated t his evening. Hemoglobin 12 and stable. Recheck again in 12 hours. -Rest of management as per primary surgical team Full code DVT prophylaxis: As per primary surgical team Consult Attestations Medical Necessity Statement: Defer to primary team Coding Level of Care Code Acute Mixing Tumbler Operator for [facility] Fwd Diagnoses Bladder cancer C67.9 Lumbar stenosis with neurogenic claudication M48.062 Hypertension I10 Gout M10.9
[2022-11-13] MEDS: propafenone 150 mg Tablet PO (21:31)
[2022-11-13] MEDS: morphine 4 mg/mL SDV 1 mL 2 MG IVP (22:15)
[2022-11-14] VITALS (27 sets, daily range): BP systolic 104–135; BP diastolic 56–88; PULSE 63–113; RESP 11–23; TEMP 36.6–37.6; O2SAT 88–100
[2022-11-14] MEDS: morphine 4 mg/mL SDV 1 mL 2 MG IVP ×3 (00:18→19:30)
[2022-11-14 03:13] LABS: Basophils % 0.3 %; Eosinophils # 0.1 10^3/uL (0.0-0.8); Eosinophils % 0.6 %; Hemoglobin 11.3 g/dL (11.7-16.6); Lymphocytes # 1.3 10^3/uL (0.8-4.8); Lymphocytes % 12.1 %; Mean Corpuscular HGB Conc 33.2 g/dL (30.0-36.0); Mean Corpuscular Hemoglobin 34.6 pg (28.0-34.0); Mean Platelet Volume 10.4 fL (7.4-10.4); Monocytes # 0.9 10^3/uL (0.2-0.9); Monocytes % 7.7 %; Neutrophils % 78.8 %; Nucleated Red Blood Cells % 0 %; Platelet Count 208 10^3/cmm (130-400); Red Blood Count 3.27 10^6/uL (4.1-5.3); Red Cell Distribution Width 14.8 % (12.1-15.1)
[2022-11-14] MEDS: ketorolac 30 mg/mL INJ IVP (03:42)
[2022-11-14 03:56] LABS: Blood Urea Nitrogen 20 mg/dL (8-23); Calcium 7.9 mg/dL (8.5-10.5); Carbon Dioxide 21 mmol/L (22-29); Chloride 110 mmol/L (98-107); Creatinine Clr Calc Pharmacy 97.6178; Glucose 83 mg/dL (65-115); Magnesium 1.9 mg/dL (1.7-2.3); Osmolality Calculated 296 mOsm/kg (285-295); Sodium 142 mmol/L (136-145)
[2022-11-14 04:01] LABS: Anion Gap 15.2 (5-19); Potassium 4.2 mmol/L (3.5-5.1)
[2022-11-14] MEDS: ceFAZolin 2,000 MG in sodium chloride 0.9% (plus) 50 ML 100 MG IV ×2 (05:50→12:31)
--- NOTE | 2022-11-14 07:53 | PM.PN ---
Subjective Subjective: POD 1 Patient resting comfortably. Reports less pain in his feet. Still weak in both EHLs right greater than left. Denies any chest pain, shortness of breath, headaches. Vitals/I&O/Wt Last Vital Signs Temp 98.3 F 11/14/22 04:00 Pulse 78 11/14/22 06:00 Resp 13 11/14/22 06:00 BP 106/74 11/14/22 06:00 Pulse Ox 96 11/14/22 06:00 O2 Del Method 11/14/22 01:00 O2 Flow Rate 3 11/14/22 01:00 11/13/22 11/14/22 11/14/22 22:59 06:59 14:59 Intake Total 170 / 220 480 / 700 Output Total 250 / 250 425 / 675 Balance -80 / -30 55 / 25 Weight last 48 hrs Weight 231 lb 7.766 oz Physical Exam Narrative: Patient presents alert and oriented x3 with a good general appearance normal mood and affect. Normal coordination normal stability. Mild tenderness around the incisional site with the incision appears clean and dry with Hemovac intact. No signs of erythema or drainage. No signs of infection. Patient denies any fevers or chills. 4/5 motor strength both lower extremities with weakness in the right EHL consistent with a right foot drop with negative straight leg raise bilaterally. Calves are supple no medial thigh tenderness. Pulses are 2+ at the dorsalis pedis and posterior tibial region. Good capillary refill throughout normal sensation light touch both lower extremities. Urinary Catheter Management: Kay: Cath Placed During This Visit: yes Reason for Continuing Indwelling Catheter: Accurate Measurement of Urinary Output in Critically Ill Patients Urinary Catheter Date of Insertion: 11/13/22 Urinary Catheter Time of Insertion: 13:17 Data 11/14/22 02:43 11/14/22 02:43 A&P Assessment and plan (1) S/P spinal fusion: Physical therapy to mobilize. We will discontinue Kay catheter after that session. Okay from our standpoint to transfer to [facility] if remaining medically stable. Encourage incentive spirometry for pulmonary toilet. foreign exchange services manager to consult for placement. Hold Hemovac drain until postop day 2. (2) Right foot drop: Attestations Medical Necessity Statement*: foreign exchange services manager to consult for placement Coding Level of Care Code Acute Outside Barrel Lathe Operator for Chg Fwd Diagnoses S/P spinal fusion Z98.1 Right foot drop M21.371
--- NOTE | 2022-11-14 09:04 | ANE.PACU2 ---
Inpatient post-anesthesia follow up: Airway intact: Yes Vital signs: Temperature 98.3 F Pulse Rate 78 Respiratory Rate 13 Blood Pressure 106/74 Pulse Oximetry 96 Oxygen Delivery Me thod Nasal Cannula Oxygen Flow Rate 3 Fraction of Inspir ed Oxygen Hydration adequate: Yes Nausea and vomiting: No Pain level: 3 Mental status: Baseline
[2022-11-14] MEDS: ipratropium-albuterol 3 mL Neb INHALATION ×2 (09:35→14:13)
[2022-11-14] MEDS: allopurinol 100 mg Tablet PO ×2 (09:56→17:14)
[2022-11-14] MEDS: propafenone 150 mg Tablet PO ×3 (09:56→22:13)
[2022-11-14] MEDS: tamsulosin 0.4 mg Capsule 1 MG PO ×2 (09:56→17:14)
[2022-11-14] MEDS: FUROsemide 20 mg Tablet PO (09:56)
[2022-11-14] MEDS: calcium gluconate 0.9% NaCL 1 GM/50 ML PREMIX IV (09:56)
[2022-11-14] MEDS: pregabalin 50 mg Capsule PO (09:56)
[2022-11-14] MEDS: lactated ringers 1,000 ML 90 ML IV (09:56)
[2022-11-14] MEDS: atorvastatin 40 mg Tablet 20 MG PO (09:57)
[2022-11-14] MEDS: docusate sodium 100 mg Capsule PO ×2 (09:57→17:14)
[2022-11-14] MEDS: dilTIAZem ER (24HR) 240 mg Capsule PO (09:57)
--- NOTE | 2022-11-14 10:24 | PM.PN ---
Subjective Subjective: Patient is doing well Eating breakfast Still no bowel movement Currently doing well on room air Plan to transfer to [facility] No active complaint of questions Vitals/I&O/Wt Last Vital Signs Temp 98.3 F 11/14/22 04:00 Pulse 75 11/14/22 09:35 Resp 17 11/14/22 09:35 BP 106/74 11/14/22 06:00 Pulse Ox 94 11/14/22 09:35 O2 Del Method 11/14/22 09:35 O2 Flow Rate 1 11/14/22 09:35 11/13/22 11/14/22 11/14/22 22:59 06:59 14:59 Intake Total 170 / 220 1480 / 1700 50 / 50 Output Total 250 / 250 425 / 675 Balance -80 / -30 1055 / 1025 50 / 50 Weight last 48 hrs Weight 105 kg Physical Exam Narrative: Needing bypass Has spine brace on Lower extremity no significant swelling Kay catheter in place Doing well on room air No active distress noted Awake and alert Nonfocal neuro exam Pleasant and cooperative Drain have 200 cc blood content Urinary Catheter Management: Kay: Cath Placed During This Visit: yes Reason for Continuing Indwelling Catheter: Accurate Measurement of Urinary Output in Critically Ill Patients Urinary Catheter Date of Insertion: 11/13/22 Urinary Catheter Time of Insertion: 13:17 Data 11/14/22 02:43 11/14/22 02:43 A&P Assessment and plan (1) S/P spinal fusion: (2) Right foot drop: (3) Hypertension: (4) Gout: (5) Diabetes mellitus: (6) Lower urinary tract symptoms (LUTS): (7) History of nonmelanoma skin cancer: (8) History of back surgery: (9) Bladder cancer: Plan Postop day 1 L4-S1 revision laminectomy T10 to pelvis posterior fusion History of diabetes and peripheral neuropathy History of foot drop Euglycemic Kay catheter to be removed after PT session today Drain will be removed by orthopedic likely tomorrow No significant drop in hemoglobin Afebrile Incentive spirometer DuoNeb every 4 as needed Wean oxygen to room air Attestations Medical Necessity Statement*: As per orthopedics Critical Care Time: 15 Coding Level of Care Code Acute Supervisor Cd Area for g Fwd Diagnoses S/P spinal fusion Z98.1 Right foot drop M21.371 Hypertension I10 Gout M10.9 Diabetes mellitus E11.9 Lower urinary tract symptoms (LUTS) R39.9 History of nonmelanoma skin cancer Z85.828 History of back surgery Z98.890 Bladder cancer C67.9
[2022-11-14] MEDS: oxyCODONE 10 mg ER (12 HR) Tablet PO ×2 (10:44→17:49)
[2022-11-14 11:31] LABS: Glucose Point of Care 167 mg/dL (70-110)
[2022-11-14] MEDS: insulin lispro 100 unit/1 mL SUBCUT ×3 (12:32→22:15)
[2022-11-14] MEDS: oxyCODONE 5 mg IR Tab/Cap 10 MG PO ×2 (12:34→21:30)
[2022-11-14 17:06] LABS: Glucose Point of Care 147 mg/dL (70-110)
[2022-11-15] VITALS (11 sets, daily range): BP systolic 123–160; BP diastolic 71–87; PULSE 75–108; RESP 16–23; TEMP 36.8–37; O2SAT 92–97
[2022-11-15] MEDS: morphine 4 mg/mL SDV 1 mL 2 MG IVP (00:04)
--- NOTE | 2022-11-15 00:05 | PC.NURSE ---
2335 upon assessment of patient, small amount of blood noted around patient's Hemovac site; dressing partially removed to assess drain site, leakage noted around site and blood no longer noted in drain tube 2340 Dr. Stephens contacted about patient's possible removal of Hemovac drain; instructed to reinforce dressing and continue to monitor
[2022-11-15] MEDS: ketorolac 30 mg/mL INJ IVP ×2 (01:50→08:09)
[2022-11-15] MEDS: ipratropium-albuterol 3 mL Neb INHALATION ×2 (02:19→08:46)
--- NOTE | 2022-11-15 04:08 | PC.NURSE ---
0330 patient unable to urinate after johnson removed; bladder scan performed, showing 58 mL of urine 0335 Dr. Blas notified of patient's inability to urinate and low UOP on bladder scan, instructed to perform an in and out catheter procedure 0400 in and out catheter performed; 150 mL of UOP noted
[2022-11-15] MEDS: lactated ringers 1,000 ML 90 ML IV (04:12)
--- NOTE | 2022-11-15 07:04 | PM.DCS ---
Discharge Providers Date of Admission: 11/13/22 18:49 Date of Discharge: November 15, 2022 Attending Provider at Admission: Bishop Hernández DO Attending Provider at Discharge: Bishop Hernández DO Primary Care Provider: Hieu Rob Diagnoses at Discharge Discharge Diagnosis (1) S/P spinal fusion: Status: Acute (2) Right foot drop: Status: Acute (3) Hypertension: Status: Acute (4) Gout: Status: Acute (5) Diabetes mellitus: Status: Acute (6) Lower urinary tract symptoms (LUTS): Status: Acute Permanent problem details: Primarily irritative with good response OXYBUTYNIN (7) History of nonmelanoma skin cancer: Status: Acute (8) History of back surgery: Status: Acute Permanent problem details: 09/07/2015 Dr. Amy Carroll. Thoracic laminectomy, placement of epidural electrode array, placement of a subcutaneous programmable pulse generator. 03/04/2013 Dr. Amy Carroll. Right L1-L2, L2-L3, L3-L4, L4-L5 and L5-S1 laminotomies, with foraminotomies and limited medial facetectomies. (9) Bladder cancer: Status: Acute Reason for Visit Reason for Visit: [id number]/ Hospital Course Hospital Course Patient did well postoperatively had full improvement of his right dorsiflexion was improved. Pain is controlled be discharged today Physical Exam Narrative: Dressings clean dry and intact. Patient's improvement of his dorsiflexion was. Similar to yesterday sensation intact. Urinary Catheter Management: Kay: Cath Placed During This Visit: yes Reason for Continuing Indwelling Catheter: Accurate Measurement of Urinary Output in Critically Ill Patients Urinary Catheter Date of Insertion: 11/13/22 Urinary Catheter Time of Insertion: 13:17 Discharge Data Studies Completed and Pending Completed Studies During Hospitalization Category Date Time Status XR chest 1V portable [id number] Urgent Exams 11/13/22 21:18 Completed XR lumbar spine 1V [id number] Routine Exams 11/13/22 17:27 Completed Radiology Impressions Lumbar Spine X-Ray 11/13/22 17:27 Impression: Posterior thoracolumbar sacral fusion. Chest X-Ray 11/13/22 21:18 IMPRESSION: Patchy bilateral mid to lower lung field atelectasis versus infiltrate. Laboratory Results WBC 11.0 10^3/uL (4.0-10.0) H 11/14/22 02:43 RBC 3.27 10^6/uL (4.1-5.3) L 11/14/22 02:43 Hgb 11.3 g/dL (11.7-16.6) L 11/14/22 02:43 Hct 34.0 % (42.0-52.0) L 11/14/22 02:43 MCV 104.0 fl (80-94) H 11/14/22 02:43 MCH 34.6 pg (28.0-34.0) H 11/14/22 02:43 MCHC 33.2 g/dL (30.0-36.0) 11/14/22 02:43 RDW 14.8 % (12.1-15.1) 11/14/22 02:43 Plt Count 208 10^3/cmm (130-400) 11/14/22 02:43 MPV 10.4 fL (7.4-10.4) 11/14/22 02:43 Neut % (Auto) 78.8 % 11/14/22 02:43 Lymph % (Auto) 12.1 % 11/14/22 02:43 [place] % (Auto) 7.7 % 11/14/22 02:43 Eos % (Auto) 0.6 % 11/14/22 02:43 Baso % (Auto) 0.3 % 11/14/22 02:43 Neut # (Auto) 8.70 10^3/uL (1.8-7.7) H 11/14/22 02:43 Lymph # (Auto) 1.3 10^3/uL (0.8-4.8) 11/14/22 02:43 [place] # (Auto) 0.9 10^3/uL (0.2-0.9) 11/14/22 02:43 Eos # (Auto) 0.1 10^3/uL (0.0-0.8) 11/14/22 02:43 Baso # (Auto) 0.0 10^3/uL (0.0-0.1) 11/14/22 02:43 Nucleated RBC % (auto) 0 % 11/14/22 02:43 Nucleated RBCs # 0.0 /100WBC 11/14/22 02:43 Sodium 142 mmol/L (136-145) 11/14/22 02:43 Potassium 4.2 mmol/L (3.5-5.1) 11/14/22 02:43 Chloride 110 mmol/L (98-107) H 11/14/22 02:43 Carbon Dioxide 21 mmol/L (22-29) L 11/14/22 02:43 Anion Gap 15.2 (5-19) 11/14/22 02:43 BUN 20 mg/dL (8-23) 11/14/22 02:43 Creatinine 0.7 mg/dL (0.7-1.2) 11/14/22 02:43 GFR Calculation Not Reportable 11/14/22 02:43 Glucose 83 mg/dL (65-115) 11/14/22 02:43 POC Glucose 147 mg/dL (70-110) H 11/14/22 17:03 Calculated Osmolality 296 mOsm/kg (285-295) H 11/14/22 02:43 Calcium 7.9 mg/dL (8.5-10.5) L 11/14/22 02:43 Magnesium 1.9 mg/dL (1.7-2.3) 11/14/22 02:43 Total Bilirubin 0.2 mg/dL (0.15-1.2) 11/13/22 20:07 AST 25 U/L (0-40) 11/13/22 20:07 ALT 20 U/L (0-41) 11/13/22 20:07 Alkaline Phosphatase 82 U/L (40-130) 11/13/22 20:07 Total Protein 6.1 g/dL (6.6-8.7) L 11/13/22 20:07 Albumin 3.6 g/dL (3.5-5.2) 11/13/22 20:07 Globulin 2.5 g/dL (1.3-4.6) 11/13/22 20:07 Blood Type A Positive 11/13/22 13:41 Rho(D) Type Positive 11/13/22 13:41 Antibody Screen Negative 11/13/22 13:41 Vitals Last Vital Signs Temp 98.6 F 11/15/22 04:00 Pulse 79 11/15/22 05:32 Resp 16 11/15/22 04:00 BP 158/71 11/15/22 04:00 Pulse Ox 94 11/15/22 04:00 O2 Del Method 11/15/22 04:00 O2 Flow Rate 1 11/15/22 04:00 Discharge Plan Discharge Patient Disposition: Home Condition: Stable Prescriptions: New oxycodone 10 mg tablet 10 mg PO Q4H PRN (Reason: pain) 7 Days Qty: 40 0RF Continued allopurinol 100 mg tablet 100 mg PO BID diltiazem HCl 240 mg capsule,extended release 24 hr 240 mg PO DAILY furosemide 20 mg tablet 20 mg PO DAILY glimepiride 1 mg tablet 1 mg PO DAILY metformin 1,000 mg tablet 1,000 mg PO BID pravastatin 40 mg tablet 40 mg PO QPM propafenone 150 mg tablet 150 mg PO TID Rx Instructions: space evenly during waking hours warfarin 4 mg tablet 4 mg PO EVERY OTHER DAY Rx Instructions: ON [id number]-BIIOUELM AND FRIDAY (DME) AREDS 2 0 .Route .MEDSUPPLY (DME) Walker See Rx Instructions .Route .MEDSUPPLY Qty: 1 0RF Rx Instructions: As directed (DME) Diabetic Shoes (3 insoles) See Rx Instructions .Route .MEDSUPPLY Qty: 1 0RF Rx Instructions: As directed (DME) AFO Brace See Rx Instructions .Route .MEDSUPPLY Qty: 1 0RF Rx Instructions: As directed (DME) Intraoperative neuromonitoring See Rx Instructions .Route .MEDSUPPLY Qty: 1 0RF Rx Instructions: As directed warfarin 3 mg Tablet 3 mg PO EVERY OTHER DAY Rx Instructions: ON FRIDAY, FRIDAY AND FRIDAY pregabalin 50 mg capsule 50 mg PO DAILY tamsulosin 0.4 mg capsule 0.4 mg PO BID Discontinued hydrocodone-acetaminophen 10-325 mg tablet 1 tab PO Q6H Discharge Orders: Discharge Order (Routine); Ordered 11/15/22 Ordered By: Bishop Hernández Discharge Diet: Advance as tolerated Discharge Activity: Limit activity as instructed Patient Instructions: Opioid Safety Activity Restrictions/Additional Instructions: Thank you for choosing [facility] for your care! The following is a list of instructions, from your provider, to follow upon your discharge to ensure you have the optimal recovery from your recent injury or surgery. Follow-up care is a [place] part of your treatment and safety. Be sure to make and go to all appointments and call your doctor if you are having problems. If you do not already have a follow-up appointment made, call Dr. Hernández's] office in the next 1-3 days to make follow up appointment for 1 weeks at [phone]. It is also a good idea to know your test results and keep a list of the medicines you take. Medications will be prescribed for you at your provider's discretion. These medications are to be used as instructed; if they are taken more often that prescribed they will not be refilled early and in most cases will not be refilled at all. > When a refill is needed, you should contact merlin henriquez 2-3 business days before your prescription runs out. Medications will NOT be refilled by management information systems director providers after hours! > Many pain medications contain Tylenol (Acetaminophen). Do not consume more than 4,000 mg of Tylenol per day in total with any combination of medications. > Pain medications can cause constipation. Please use an over the counter stool softener as directed, while taking pain medications. Consult your local pharmacist with questions or recommendations on stool softeners. If constipation persists, contact our office or your primary care provider. > While under our care, you are not to receive pain medications or other controlled substances from any other provider unless our office is notified and approves. Any attempts to do so will result in refusal to prescribe any further pain medications and possible dismissal from our practice. ? Walking is essential for the healing process after surgery. We would like you to slowly advance your walking. This should be done on relatively flat clear ground (inside or out) or can be done on a treadmill. Remember this goal does not have to happen all at once, slowly increase your distance and duration. This can be broken into more more than one walk per day as tolerated. Patients who walk as directed after surgery rarely require Physical Therapy. In the unlikely event this issue arises your provider will direct hospital staff to make the appropriate arrangements. ? No lifting over 5 pounds {a gallon of milk) or bending/twisting until further notice. Each of these activities places an unnecessary amount of stress onto the body and can impede the delicate healing process. > Instead of bending at the waist, keep your back straight and bend at the knees. > Instead of twisting your torso, keep your back straight and turn your entire body with your feet. ? You may sleep in any position which makes you comfortable. Many patients find comfort sleeping in a reclining chair. It is not abnormal to have difficulty sleeping for the first several weeks following your surgery. We recommend trying Benadry! or Tylenol PM as directed to help with your sleeping difficulties. Both medications are over the counter and available without prescription. ? NO SMOKING!!! Smoking dramatically increases the probability of developing postoperative wound infections. ? Common complaints after lumbar and/or thoracic spine surgery include, but are not limited to: numbness and/or tingling in the legs, pain around the incision and surrounding tissues, muscle spasms, or stiffness of the middle to low back. Contact our office if these symptoms persist or if an acute change occurs. ? No driving for the first 3-5days, and not while taking narcotics until seen at your follow-up appointment and cleared. There are no restrictions for riding on short trips, however if you take a longer trip, arrangements should be made to make regular stops to get out of the vehicle and stretch . ? Swelling is an unfortunate event that will take place with any surgery and is the primary source of your postoperative discomfort. While walking and regular approved activities helps control inflammation, there are additional steps you can take to minimize swelling. > Place ice over the surgical site and surrounding tissue for twenty minutes, followed by applying a low/medium heat (heating pad) for an additional twenty minutes every 1-2 hours as needed for painrelief. > You may use of over the counter anti-inflammatory medications (Ibuprofen, Motrin, Aleve, Advil, etc) as directed on the package label. These types of medicines will significantly reduce the amount of discomfort you experience after surgery from swelling. It should be noted that if you have and allergy to any of these medications, or a history of ulcers or kidney disease you should consult you primary care provider prior to starting these medications. Discharge Attestations Time Spent in Discharge Care*: less than 30 min Quality Metrics Clinical Quality Measures [ No reported AMI, CVA or VTE this stay] Coding Level of Care Code Acute Chg FW DC note Diagnoses S/P spinal fusion Z98.1 Right foot drop M21.371 Hypertension I10 Gout M10.9 Diabetes mellitus E11.9 Lower urinary tract symptoms (LUTS) R39.9 History of nonmelanoma skin cancer Z85.828 History of back surgery Z98.890 Bladder cancer C67.9
[2022-11-15 07:33] LABS: Glucose Point of Care 128 mg/dL (70-110)
[2022-11-15] MEDS: atorvastatin 40 mg Tablet 20 MG PO (08:08)
[2022-11-15] MEDS: propafenone 150 mg Tablet PO (08:08)
[2022-11-15] MEDS: oxyCODONE 10 mg ER (12 HR) Tablet PO (08:08)
[2022-11-15] MEDS: FUROsemide 20 mg Tablet PO (08:08)
[2022-11-15] MEDS: docusate sodium 100 mg Capsule PO (08:08)
[2022-11-15] MEDS: allopurinol 100 mg Tablet PO (08:08)
[2022-11-15] MEDS: dilTIAZem ER (24HR) 240 mg Capsule PO (08:08)
[2022-11-15] MEDS: tamsulosin 0.4 mg Capsule PO (08:08)
[2022-11-15] MEDS: pregabalin 50 mg Capsule PO (08:08)
[2022-11-15 08:18] LABS: Glucose Point of Care 212 mg/dL (70-110)
--- NOTE | 2022-11-15 12:47 | PC.NURSE ---
Patient received DC orders, all IVs removed. All discharge instructions given to patient, and prescriptions sent to preferred pharmacy. All activity restrictions given in discharge paperwork and patient verbalized understanding. Patient exited via W/C to main exit with staff.
== END 2022-11-15 11:02 | disposition home health service (06) | DRG 458 ==
LOC: ICU 18:49
PROVIDERS: Internal Medicine; Admitting Provider Orthopaedic Surgery; PCP Family Medicine; Visit Provider Orthopaedic Surgery
PROC: 0RG707J Fusion of 2 to 7 Thoracic Vertebral Joints with Autologous Tissue Substitute, Posterior Approach, Anterior Column, Open Approach (ICD-10-PCS; principal; 2022-11-13 11:40)
PROC: 0RG707J Fusion of 2 to 7 Thoracic Vertebral Joints with Autologous Tissue Substitute, Posterior Approach, Anterior Column, Open Approach (ICD-10-PCS; CPT 63005; 2022-11-13 11:40)
PROC: 0RG707J Fusion of 2 to 7 Thoracic Vertebral Joints with Autologous Tissue Substitute, Posterior Approach, Anterior Column, Open Approach (ICD-10-PCS; 2022-11-13 11:40)
DX: M48.062 Spinal stenosis, lumbar region with neurogenic claudication (principal); M21.371 Foot drop, right foot; I10 Essential (primary) hypertension; M10.9 Gout, unspecified; E11.42 Type 2 diabetes mellitus with diabetic polyneuropathy; N40.1 Benign prostatic hyperplasia with lower urinary tract symptoms; Z85.828 Personal history of other malignant neoplasm of skin; Z98.1 Arthrodesis status; C67.9 Malignant neoplasm of bladder, unspecified; Z79.84 Long term (current) use of oral hypoglycemic drugs; Z79.01 Long term (current) use of anticoagulants; M41.20 Other idiopathic scoliosis, site unspecified; M96.1 Postlaminectomy syndrome, not elsewhere classified; Z96.651 Presence of right artificial knee joint; F17.200 Nicotine dependence, unspecified, uncomplicated; E78.00 Pure hypercholesterolemia, unspecified; I48.91 Unspecified atrial fibrillation
CPT/HCPCS: 36416; 51702; 71045; 72020; 76000; 80048; 80053; 82962; 83735; 85025; 86850; 86900; 94640; 96372; 97116; 97161; 97530; C1713; J0330; J0610; J0690; J1100; J1170; J1644; J1815; J1885; J2250; J2270; J2370; J2405; J2704; J3010; J3370; J3490; J7120; P9045

== ENCOUNTER → 2022-11-28 12:53 | Outpatient (BNVA) | payer MEDICARE, BC, SELFPAY | PROVIDERS: PCP Family Medicine; Visit Provider Orthopaedic Surgery | DX: Z47.89 Encounter for other orthopedic aftercare (principal); Z98.1 Arthrodesis status | CPT/HCPCS: 99024 ==

== ENCOUNTER → 2022-12-26 13:13 | Outpatient (BNVA) | payer MEDICARE, BC, SELFPAY | PROVIDERS: PCP Family Medicine; Visit Provider Orthopaedic Surgery | DX: Z98.1 Arthrodesis status (principal); Z47.89 Encounter for other orthopedic aftercare | CPT/HCPCS: 72100; 99024 ==

== ENCOUNTER → 2023-01-30 12:50 | Outpatient (BNVA) | payer MEDICARE, BC, SELFPAY | PROVIDERS: PCP Family Medicine; Visit Provider Urology | DX: C67.9 Malignant neoplasm of bladder, unspecified (principal) | CPT/HCPCS: 81003 ==

== ENCOUNTER → 2023-03-27 12:20 | Outpatient (BNVA) | payer MEDICARE, BC, SELFPAY | PROVIDERS: PCP Family Medicine; Visit Provider Thoracic Surgery (Cardiothoracic Vascular Surgery) | DX: M21.371 Foot drop, right foot (principal) | CPT/HCPCS: 99203 ==

== ENCOUNTER → 2023-04-15 10:54 | Outpatient (BNVA) | payer MEDICARE, BC, SELFPAY | PROVIDERS: PCP Family Medicine; Visit Provider Physician Assistant | DX: M48.062 Spinal stenosis, lumbar region with neurogenic claudication (principal); M21.371 Foot drop, right foot; Z98.1 Arthrodesis status | CPT/HCPCS: 72070; 72100; 99213 ==

== ENCOUNTER → 2023-07-28 14:31 | Outpatient (BNVA) | payer MEDICARE, BC, SELFPAY | PROVIDERS: PCP Family Medicine; Visit Provider Internal Medicine | DX: R07.9 Chest pain, unspecified (principal); I48.91 Unspecified atrial fibrillation; I45.10 Unspecified right bundle-branch block; E11.9 Type 2 diabetes mellitus without complications; I10 Essential (primary) hypertension; R94.31 Abnormal electrocardiogram [ECG] [EKG] | CPT/HCPCS: 93005; 99204 ==

== ENCOUNTER 2023-08-08 14:38 | Outpatient (CLI) | payer MEDICARE, BC, SELFPAY ==
--- NOTE | 2023-08-08 15:00 | USCV_ITS ---
Wilma Dowling Age: 78 Gender: M : 1945 Exam Date: 08/08/2023 15:10 Ordering Phys: Danilo Cutler M.D ([email or web address]) Technologist: [place] [facility] [place]: BP: 130 / 85 HR: 70 Rhythm: Sinus Technical Quality: Adequate MEASUREMENTS (Male / Female) Normal Values 2D ECHO LV Chamber Size 4.9 cm RV Chamber Size 4.5 cm LVOT Diameter 2.0 cm LV Ejection Fraction MOD 2C 59.7 % LV Ejection Fraction 2C AL 62.4 % LA Diameter 6.3 cm LA Width 4.8 cm LA Height 7.1 cm RA Width 4.5 cm RA Height 7.0 cm Aorta at Sinotubular Diameter 2.6 cm M-MODE Aortic Annulus Diameter 4.1 cm LA Ao Ratio MM 1.6 MV E Point Septal Separation 1.7 cm DOPPLER AV Peak Velocity 160.0 cm/s LVOT Peak Velocity 88.0 cm/s AV Area Cont Eq vti 2.2 cm squared AV Area Cont Eq pk 1.8 cm squared MV Area PHT 4.3 cm squared Mitral E to A Ratio 3.5 MV E' Velocity 67.5 cm/s Mitral E to MV E' Ratio 9.2 Mitral E to LV E' Lateral Ratio 8.8 Mitral E to LV E' Septal Ratio 9.7 TR Peak Velocity 198.7 cm/s TR Peak Gradient 15.8 mmHg TV Peak E Velocity 78.0 cm/s Right Atrial Pressure 3.0 mmHg Pulmonary Artery Systolic Pressu 18.8 mmHg PV Peak Velocity 100.0 cm/s FINDINGS Left Ventricle Left ventricle is normal in size. LV systolic function is normal with EF 55 to 60%. No regional wall motion abnormalities are seen. Right Ventricle Normal in size and function Right Atrium Dilated Left Atrium Dilated Mitral Valve Structurally normal mitral valve. Mild mitral regurgitation. Aortic Valve Structurally normal aortic valve. No significant stenosis. Tricuspid Valve Trace tricuspid regurgitation. Insufficient TR jet to calculate RVSP Pulmonic Valve Trace pulmonic regurgitation. Pericardium Normal Aorta Normal in size IVC Appears to be normal CONCLUSIONS LV systolic function is normal with EF 55 to 60%. Biatrial dilation Mild mitral regurgitation Trace tricuspid regurgitation Trace pulmonic regurgitation Compared to prior echocardiogram from 2018, no significant changes are seen Danilo Cutler MD (Electronically Signed) Final Date: 25 August 2023 12:06 S
== END 2023-08-08 14:39 | disposition home or self-care (01) ==
LOC: RAD 14:39
PROVIDERS: PCP Family Medicine; Visit Provider Internal Medicine
DX: R07.9 Chest pain, unspecified (principal); R06.02 Shortness of breath; I34.0 Nonrheumatic mitral (valve) insufficiency; I51.7 Cardiomegaly
CPT/HCPCS: 93306

== ENCOUNTER → 2023-10-21 09:39 | Outpatient (BNVA) | payer MEDICARE, BC, SELFPAY | PROVIDERS: PCP Family Medicine; Visit Provider Physician Assistant | DX: Z98.1 Arthrodesis status; M47.816 Spondylosis without myelopathy or radiculopathy, lumbar region | CPT/HCPCS: 72100; 99213 ==

== ENCOUNTER → 2024-04-27 14:54 | Outpatient (BNVA) | payer MEDICARE, BC, SELFPAY | PROVIDERS: PCP Family Medicine; Visit Provider Internal Medicine Cardiovascular Disease | DX: I48.91 Unspecified atrial fibrillation (principal); I10 Essential (primary) hypertension; Z72.0 Tobacco use; Z79.01 Long term (current) use of anticoagulants | CPT/HCPCS: 99214 ==

== ENCOUNTER 2025-11-02 11:56 | Outpatient (CLI) | payer MEDICARE, BC, SELFPAY ==
--- NOTE | 2025-11-02 12:02 | CTR_ITS ---
PROCEDURE INFORMATION: Exam: CTA Abdominal Aorta and Bilateral Lower Extremities (Run-off) With Contrast Exam date and time: 11/02/2025 12:24 PM Age: 80 years old Clinical indication: Other: Pad, right foot drop since back surgery years ago; Prior surgery; Surgery date: 6+ months; Surgery type: Back, bilateral knees, bilateral ankles; Pad with right foot drop since back surgery years ago TECHNIQUE: Imaging protocol: Computed tomographic angiography of the of the abdominal aorta, pelvis and bilateral lower extremities with contrast. 3D rendering (Not supervised by radiologist): MIP and/or 3D reconstructed images were created by the technologist. Radiation optimization: All CT scans at this facility use at least one of these dose optimization techniques: automated exposure control; mA and/or kV adjustment per patient size (includes targeted exams where dose is matched to clinical indication); or iterative reconstruction. Contrast material: OMNIPAQUE 350; Contrast volume: 125 ml; Contrast route: INTRAVENOUS (IV); COMPARISON: CR XR knees AP WB w LT lmt ORTH 03/29/2019 1:48 PM RADIATION DOSE METRICS: Total DLP (mGy-cm): 1867.11 FINDINGS: Limitations: Streak artifact from spinal fixation hardware and knee replacements. Aorta: Moderate to severe calcified and soft plaque in the abdominal aorta, which is moderately tortuous. Maximum diameter of 25 mm in the infrarenal abdominal aorta. Aneurysm is not identified. 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 Renal arteries: No occlusion or significant stenosis. Right iliac arteries: No occlusion or significant stenosis. Right femoral/popliteal arteries: Proximal right SFA demonstrates a focal 60-70% diameter stenosis. 50% diameter stenosis in the mid right SFA. 70-80% diameter stenosis in the distal right SFA. Right infrapopliteal arteries: The popliteal artery is obscured by streak artifact from knee replacement. Proximal right anterior tibial artery briefly occludes within 1 cm of its origin. Remainder of anterior tibial is severely diseased, but patent to the ankle. Right dorsalis pedis enhancement is not noted. Severely diseased right posterior tibial artery occludes in the proximal calf, but reconstitutes via collaterals to the ankle. Peroneal artery is patent. Left iliac arteries: No occlusion or significant stenosis. Left femoral/popliteal arteries: Mild narrowing of the distal left common femoral artery. Less than 50% diameter narrowing of the proximal left SFA. 70-80% diameter narrowing of the mid left SFA. Left popliteal artery is obscured by knee replacements. Left infrapopliteal arteries: Left anterior tibial artery is patent to the dorsalis pedis and primary flow to the left foot. Severe origin stenoses of the peroneal and posterior tibial at the bifurcation from the tibioperoneal trunk. Peroneal artery then occludes, but is reconstituted at the ankle via the anterior tibial artery. Right posterior tibial artery occludes in the proximal calf, to be reconstituted at the ankle to a small-vessel. Lungs: Mild lingula and left lower lobe atelectasis. Heart: Multichamber cardiac enlargement. Coronary arteries: Moderate coronary artery calcification. Liver: Multiple hepatic hypodensities favoring cysts. Few small peripheral hyperdense foci are nonspecific and could reflect arteriovenous shunting, hemangiomas or other processes. Gallbladder and biliary ducts: The gallbladder is normal. There is no evidence of biliary ductal dilation. Pancreas: The pancreas is normal. No mass. Spleen: The spleen is normal. Adrenal glands: Mild adrenal limb thickening without focal mass identified. Kidneys and ureters: Large bilateral renal cysts, measuring up to 9.5 cm on the left. No hydronephrosis. 3.3 cm lower pole, exophytic cyst in the right kidney demonstrating mildly irregular, fragmented mural calcification. Stomach and bowel: Sigmoid diverticulosis. Moderate mural thickening involving the sigmoid colon could reflect diverticulitis, localized colitis or neoplastic disease. No pericolonic inflammatory changes. No bowel dilatation. Appendix: Normal appendix. Urinary bladder: No focal wall thickening of the urinary bladder. Reproductive: Prostate is enlarged and calcified. Intraperitoneal space: No free intraperitoneal fluid or gas. Lymph nodes: No lymph node enlargement. Prominent bilateral inguinal lymph nodes. Bones/joints: Intact posterior spinal fixation device extending from T10 to the SI joints. Moderate radiolucency surrounds the sacroiliac screws bilaterally, which could indicate loosening. Bilateral knee replacements. Severe degenerative disc disease at T7-8. Soft tissues: [id number] subcutaneous edema in the distal lower extremities bilaterally CT/CT angio abd aorta runof [id number] IMPRESSION: 1. 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 2. 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 3. 3.3 cm lower pole, exophytic cyst in the right kidney demonstrating mildly irregular, mural calcification and probable mild mural thickening. Bosniak IIF cystic renal mass. The large majority of Bosniak IIF masses are benign. When malignant, nearly all are indolent. Generally, Bosniak IIF masses are followed by imaging at 6 months and 12 months, then annually for a total of 5 years to assess for morphologic change. (Reference: Chika) 4. Moderate mural thickening involving the sigmoid colon could reflect diverticulitis, localized colitis or neoplastic disease. 5. Moderate radiolucency surrounds the sacroiliac screws bilaterally, which could indicate loosening. REFERENCES: Chika HAQ, et al. Bosniak Classification of Cystic Renal Masses, Version 2019: An Update Proposal and Needs Assessment. Radiology. 2019;292(2):475-488.
[2025-11-02 12:21] LABS: Blood Urea Nitrogen 12 mg/dL (8-23)
[2025-11-02] MEDS: iohexol 350 mg/mL 500 mL Btl (per mL) IV (12:33)
== END 2025-11-02 11:57 | disposition home or self-care (01) ==
LOC: RAD 11:57
PROVIDERS: Radiology Diagnostic Radiology; PCP Family Medicine; Visit Provider Family Medicine
DX: I73.9 Peripheral vascular disease, unspecified (principal); Z96.89 Presence of other specified functional implants; K57.32 Diverticulitis of large intestine without perforation or abscess without bleeding; N28.1 Cyst of kidney, acquired
CPT/HCPCS: 75635; 82565; 84520